=== PATIENT | male | born 1995 | race Caucasian/White ===

== ENCOUNTER 2025-06-07 14:09 | Emergency (ER) | payer OTHER, SELFPAY ==
--- NOTE | ~2025-06-07 | XR_ITS ---
EXAMINATION: XR CHEST CLINICAL INFORMATION: cp/sob COMPARISON: None available. TECHNIQUE: 2 views of the chest were obtained. FINDINGS: The lungs are well-expanded. There is no focal consolidation, edema or effusion. No pneumothorax. The cardiomediastinal silhouette is within normal limits. No acute osseous abnormality. XR/XR chest 2V IMPRESSION: No acute pulmonary disease. Electronically signed by: Wei Summers MD 06/07/2025 02:58 PM EST
--- NOTE | 2025-06-07 14:11 | ECG_ITS ---
Test Reason : HIGH HEAT RATE Blood Pressure : */* mmHG Vent. Rate : 121 BPM Atrial Rate : 121 BPM P-R Int : 126 ms QRS Dur : 80 ms QT Int : 292 ms P-R-T Axes : 72 50 54 degrees QTcB Int : 414 ms Sinus tachycardia Possible Left atrial enlargement Borderline ECG No previous ECGs available Referred By: Junie Calvo Electronically Signed By: LOPEZ ALLEN MD
[2025-06-07 14:26] VITALS: BP 171/86; PULSE 123; RESP 20; TEMP 37; O2SAT 97; BMI 21.4
--- NOTE | 2025-06-07 14:27 | ED.ARRPALP ---
HPI - Arrhythmia/Palpitations General Chief Complaint: Arrhythmia/Palpitations Stated Complaint: High Heart Rate, High Blood Pressure Time Seen by Provider: 06/07/25 18:42 History of Present Illness ED Provider: Mojgan HERNANDEZ narrative: The patient is a 30-year-old male who says that he has a very ill-defined past medical history of possible vestibular migraines but who was currently on no medications and does not have any other well-defined medical issues. He says that he was doing laundry at home today. He had to go up and down stairs several times. He says that he felt that his heart was racing more than he thought was normal and he also felt that the exertion of going up and down stairs seemed more significant than usual as well. He had a home blood pressure machine that indicated that he was hypertensive with a blood pressure of 150/120 and a rapid heart rate. He was concerned and came to the emergency room. He does not have any complaint of pain. No headache, no visual symptoms, no neck pain, no chest pain, no abdominal pain. He was not sweaty. The patient says that he drinks for 16 ounce beers every night. He says that he drank 4 beers yesterday. He says his drinking has never impaired his ability to work. He works at a highly skilled factory job and has never been impaired at work and does not feel that his alcohol use interferes with his work. He says that he used to be a heavier drinker but that he cut back to only four 16 ounce beers per day. No fever, sweats, chills. He denies any drug use other than alcohol use. He says that he has not had a primary care doctor 8 years. He says that when he was younger he had frequent problems with dizziness that led to multiple referrals and multiple testing both in his area and in the [facility]. He says that he was never given a very specific diagnosis accept for possibly having vestibular migraines. He says several medications were tried none of which worked very well. He says that he continues to have chronic low-grade symptoms of the same nature but has not seen anyone about them in years. He says he does not smoke cigarettes. He lives alone. Related Data Allergies Allergy/AdvReac Type Severity Reaction Status Date / Time No Known Allergies Allergy Verified 06/07/25 14:29 Review of Systems Review of Systems: Yes all other systems are reviewed and are negative [facility] Social History Social History Alcohol intake: current Alcohol intake frequency: 3 or more drinks per day Alcohol type: beer Physical Exam Vital Signs: Vital Signs: Last Vital Signs Temp 98.6 F 06/07/25 21:51 Pulse 90 06/07/25 21:51 Resp 16 06/07/25 21:51 BP 130/96 H 06/07/25 21:51 Pulse Ox 97 06/07/25 21:51 O2 Del Method Room Air 06/07/25 21:51 BMI result Body Mass Index 21.4 Const: Other: The patient is a 30-year-old male who is awake and alert. He does not appear in obvious distress. He has a somewhat anxious demeanor. Orientation/consciousness: patient oriented x3 HEENT: Other: Face is symmetrical, tongue is midline, posterior pharynx is normal. Eyes: Other: I thought there might be some very subtle anisocoria with the right pupil being slightly larger than the left. However both pupils were briskly reactive to light. There was no ptosis. Extraocular movements are intact. The eyes are otherwise normal. Neck: Neck: Yes normal visual inspection, Yes full ROM and Yes no lymphadenopathy Resp: Effort & Inspection: normal respiratory effort Auscultation: clear to auscultation bilaterally Cardio: Rate: tachycardic Rhythm: regular rhythm Heart sounds: S1 normal heart sound present, S2 normal heart sound present and Murmur heart sound present (No murmur heard) GI: Other: Abdomen is soft and nontender, no masses Skin: Other: The skin is dry and unremarkable Neuro: General: patient oriented x3, gait normal, tone normal, moves all extremities, no focal motor deficits and CN's II-XI intact bilaterally Extrem: Other: There is no calf swelling or tenderness. No asymmetry. No peripheral edema. Course Course Course Narrative: This is a Rapid Medical Exam performed in triage by Junie Calvo PA-C. Full HPI, ROS and PE to be performed by primary ED provider. 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 States BP was 150/120 & HR in 120s. Admits to chest discomfort & SOB PE: tachycardic, ambulating w/steady gait, nontoxic appearing Plan: EKG, labs, CXR, SARs Medications Administered Discontinued Medications Generic Name Dose Route Start Last Admin Trade Name Iveth PRN Reason Stop Dose Admin Sodium Chloride 1,000 mls @ 999 mls/hr 06/07/25 19:45 06/07/25 20:54 Ns IV 06/07/25 20:45 Infused .Q1H1M DONNIE Infusion Medical Decision Making Medical Decision Making [facility] Narrative: The patient is a 30-year-old male on no medication who comes to the emergency department after checking his vital signs at home. He was doing laundry at home. He says he had to go up and down stairs several times and he felt that his heart was racing and that he felt slightly more winded than usual. He then checked his vital signs, he was tachycardic and hypertensive. He was concerned and came to the emergency room. He did not have any significant headache, neck pain, chest pain, back pain, or abdominal pain associated with this. No fever, sweats, chills. No nausea or vomiting. And arrival here the patient has a blood pressure of 171/86 with a heart rate of 123. He had an EKG that showed sinus tachycardia at 121 beats per minute. No definite acute ischemic changes were present on the EKG. No old EKGs available for comparison. The patient had an undetectable troponin. A proBNP of 25. TSH was 0.60. Electrolytes are normal. Renal function is normal. Glucose was mildly elevated at 119. He had an PA and lateral chest x-ray that showed no acute findings. Because of his unexplained tachycardia a D-dimer was done that was < 150. Overall I found the patient is presentation puzzling. He is only 30 years old. His degree of hypertension and his tachycardia was surprising although he did not look obviously acutely ill. He had no pain associated with this. No diaphoresis. No significant tremor. The patient admits to drinking for 16 oz of beer every evening. However he says he had 4 beers yesterday so I would not expect him to be an alcohol withdrawal at this point. Overall his lab testing is quite reassuring from the point of view of any dangerous acute cardiopulmonary or vascular process. He was given a L of IV saline. His vital signs improved. His heart rate came down to 90. His blood pressure came down to 130/96. His vital signs made me wonder as to whether I should consider a pheochromocytoma but he had no diaphoresis and no headache. He also does not really seemed to be describing episodes of symptoms. My overall impression is that the patient improved with simple hydration and that I may discharge him. Unfortunately he does not have a PCP. I emphasized to the patient that he really should get a PCP. He was given multiple offices for contact information so that he can start trying to get a PCP on Tuesday. If he is significantly worse at any point he should return to the emergency department directly. Lab Data 06/07/25 15:44 06/07/25 15:44 Labs: Lab Results 06/07/25 06/07/25 06/07/25 Range/Units 15:44 21:09 21:11 WBC 12.3 H (4.8-10.8) X10*3/uL RBC 5.24 (4.60-5.80) X10*6/uL Hgb 17.0 (14.0-18.0) g/dl Hct 48.9 (42.0-52.0) % MCV 93.3 (80.0-98.0) fL MCH 32.4 (27.0-33.0) pg MCHC 34.8 (31.0-36.0) g/dl RDW 11.5 (11.0-16.0) % Plt Count 286 (160-400) X10*3/uL MPV 8.1 L (9.4-12.4) fL Immature Gran % (Auto) 0.3 (0.0-0.4) % Neut % (Auto) 87.5 H (45-73) % Lymph % (Auto) 6.7 L (20-40) % [place] % (Auto) 5.1 (2-11) % Eos % (Auto) 0.2 (0-4) % Baso % (Auto) 0.2 (0-2) % Lymph # (Auto) 0.8 L (1.2-4.9) X10*3/uL [place] # (Auto) 0.6 (0.1-1.2) X10*3/uL Eos # (Auto) 0.0 (0.0-0.4) X10*3/uL Baso # (Auto) 0.0 (0.0-0.2) X10*3/uL Abs Immat Gran (auto) 0.04 H (0.00-0.03) X10*3/uL Absolute Neuts (auto) 10.8 H (2.0-8.3) x10*3/uL Absolute Nucleated RBC 0.000 (0.0-0.012) X10*3/uL Nucleated RBC % (auto) 0.0 (0.0-0.2) /100WBC PT 11.5 (11.2-13.5) SEC INR 0.9 (0.9-1.1) D-Dimer High Sensitivty < 150 NG/ML Sodium 139 (135-145) mmol/L Potassium 3.9 (3.3-5.1) mmol/L Chloride 101 (96-108) mmol/L Carbon Dioxide 27 (22-29) mmol/L Anion Gap 15 (12-20) BUN 9 (9-16) mg/dL Creatinine 0.75 (0.5-1.4) mg/dL Estim Creat Clear Calc 135.2 Estimated GFR > 60 Random Glucose 119 H (60-115) mg/dL Calcium 10.0 (8.4-10.2) mg/dL Magnesium 2.2 (1.6-2.6) mg/dL Total Bilirubin 0.8 (0.0-1.0) mg/dL Direct Bilirubin 0.5 (0.0-0.5) mg/dL AST 37 (5-37) U/L ALT 36 (0-40) U/L Alkaline Phosphatase 51 (39-117) U/L Troponin I High Sens < 2.7 (<3.5-35.0) ng/L C-Reactive Protein < 0.10 (< or = 0.50) mg/dL NT-Pro-B Natriuret Pep 25.1 (<300) pg/mL Total Protein 8.3 H (6.5-8.0) g/dL Albumin 5.0 (3.5-5.0) g/dL TSH 0.60 (0.32-4.0) uIU/mL Urine Color Yellow Urine Appearance Clear Urine pH 6.5 (5.0-9.0) Ur Specific [place] 1.010 (1.005-1.025) Urine Protein Negative (Neg-Trace) mg/dL Urine Glucose (UA) Negative (Negative) mg/dL Urine Ketones Trace (Negative) mg/dL Urine Blood Negative (Negative) Urine Nitrite Negative (Negative) Ur Leukocyte Esterase Negative (Negative) Urine Opiates Screen Not Detected (Not Detect) Ur Buprenorphine Scrn Not Detected (Not Detect) ng/mL Ur Oxycodone Screen Not Detected (Not Detect) ng/mL Urine Methadone Screen Not Detected (Not Detect) ng/mL Urine Fentanyl Screen Not Detected (Not Detect) Ur Barbiturates Screen Not Detected (Not Detect) Ur Phencyclidine Scrn Not Detected (Not Detect) Ur Amphetamines Screen Not Detected (Not Detect) U Benzodiazepines Scrn Not Detected (Not Detect) Urine Cocaine Screen Not Detected (Not Detect) U Marijuana (THC) Screen Not Detected (Not Detect) Ethyl Alcohol < 10 mg/dL Influenza Type A (PCR) NEGATIVE (Negative) Influenza Type B (PCR) NEGATIVE (Negative) RSV RNA Qual (PCR) NEGATIVE (Negative) SARS-CoV-2 RNA (RT-PCR) NEGATIVE (Negative) Discharge Plan Discharge Clinical Impression: Palpitations, Dyspnea on exertion, Tachycardia, Elevated blood pressure reading Patient Disposition: Home, Self-Care Additional Instructions: Your testing in the emergency room today seems largely reassuring. Please try to rest and take it easy over the weekend. Take a lot of fluids, keep yourself well hydrated. Your vital signs were abnormal today with a high heart rate and some high blood pressures. These number seemed to improve quite well without any specific intervention. The meaning of these abnormal vital signs is not entirely clear today but your testing shows no obviously dangerous process. You will need to follow up with the primary care doctor. Please work on getting a primary care doctor on Tuesday. You has been given the contact information for multiple primary care doctor offices. Additionally you can contact your insurance company to see if they have any recommendations regarding local primary care doctor offices. If at any point you feel significantly worse please return to the emergency room for recheck. Referrals: [facility] [Provider Group, Family Practice] [facility] Primary Care, Ivania [Provider Group, Internal Medicine] [facility] Primary Care, Ganesh [Provider Group, Internal Medicine] [facility] Primary Care, [facility] [Provider Group, Primary Care] [facility] Primary Care, [facility] [Provider Group, Primary Care] Kelli Batista MD [Physician, Internal Medicine] Interventions: ED Discharge Assessment Last Done: 06/07/25 21:51 Discharge Date/Time: 06/07/25 21:52 Print Language: Italian
--- OUTSIDE RECORDS SUMMARY | 2025-06-07 14:30 | XMS_ITS | Encounter Summary ---
Author Organization [facility] Address [address] [place] [address] [place] [id number] Phone Care Team Providers Care Emu Farm Worker Name Role Phone Mushtaq Ward MD Primary Care Provider Encounter Details Date Type Department Care Team (Latest Contact Info) Description 02/12/2016 Transcribe Orders [facility] Vestibular Lab [address] [address] Fernando Frias MD [email or web address] Imbalance (Primary Dx) Social History Tobacco Use Types Packs/Day Years Used Date Smoking Tobacco: Never Assessed Sex and Gender Information Value Date Recorded Sex Assigned at Not on file Legal Sex Male 12:22 PM EDT Gender Identity Not on file Sexual Orientation Not on file documented as of this encounter Plan of Treatment Not on file documented as of this encounter Results * Vestibular Testing (03/26/2016 8:16 AM EDT) Anatomical Region Laterality Modality Other Other us Fernando Frias MD NEUROLOGY ORDERABLES Final Resul t documented in this encounter Visit Diagnoses Diagnosis Imbalance- Primary Abnormality of gait documented in this encounter Care Teams Emu Farm Worker Relationship Specialty Start Date End Date Mushtaq Ward MD PCP - General 01/19/16 documented as of this encounter Additional Source Comments The information contained in this document represents components of the legal health record. It is not the complete legal health record.[facility]
--- OUTSIDE RECORDS SUMMARY | 2025-06-07 14:30 | XMS_ITS | Encounter Summary ---
Author Organization [facility] Address [address] [place] [id number] Phone Care Team Providers Care Executive Assistant To President Name Role Phone Mushtaq Ward MD Primary Care Provider Encounter Details Date Type Department Care Team (Latest Contact Info) Description 02/12/2016 Transcribe Orders [facility] Vestibular Lab [address] [address] Fernando Frias MD [email or web address] Dizziness (Primary Dx) Social History Tobacco Use Types Packs/Day Years Used Date Smoking Tobacco: Never Assessed Sex and Gender Information Value Date Recorded Sex Assigned at Not on file Legal Sex Male 12:22 PM EDT Gender Identity Not on file Sexual Orientation Not on file documented as of this encounter Plan of Treatment Not on file documented as of this encounter Procedures Procedure Name Priority Date/Time Associated Diagnosis Comments AUDIOLOGY ORDERS Routine 03/19/2016 9:44 AM EDT Dizziness documented in this encounter Results * Audiology Orders (03/19/2016 9:44 AM EDT) Other us Fernando Frias MD AUDIOLOGY SERVICES ORDERABLES Fi nal Result documented in this encounter Visit Diagnoses Diagnosis Dizziness- Primary Dizziness and giddiness documented in this encounter Care Teams Executive Assistant To President Relationship Specialty Start Date End Date Mushtaq Ward MD PCP - General 01/19/16 documented as of this encounter Additional Source Comments The information contained in this document represents components of the legal health record. It is not the complete legal health record.[facility]
--- OUTSIDE RECORDS SUMMARY | 2025-06-07 14:30 | XMS_ITS | Clinical Summary ---
Author Organization [facility] Address [address] [place] [id number] Phone Care Team Providers Care Leather Scraper Name Role Phone Mushtaq Ward MD Primary Care Provider Allergies No known active allergies Medications No known medications Active Problems No known active problems Family History Medical History Relation Comments Hearing loss Neg Hx Social History Tobacco Use Types Packs/Day Years Used Date Smoking Tobacco: Never Alcohol Use Standard Drinks/Week Comments Yes 6 (1 standard drink = 0.6 oz pur e alcohol) Education Answer Date Recorded Are you interested in more education? Not on bibiana e 10/08/2022 Are you concerned about learning? Not on file 10/08/2022 No 10/08/2022 No 10/08/2022 Digital Access Answer Date Recorded No 11/08/2022 No 11/08/2022 No 11/08/2022 Reliable internet access at home? Not on file 11/08/2022 Device with a working camera? Not on file Sex and Gender Information Value Date Recorded Sex Assigned at Not on file Legal Sex Male 12:22 PM EDT Gender Identity Not on file Sexual Orientation Not on file Last Filed Vital Signs Vital Sign Reading Time Taken Comments Blood Pressure - - Pulse - - Temperature - - Respiratory Rate 12 03/19/2016 2:48 PM EDT Oxygen Saturation - - Inhaled Oxygen Concentration - - Weight 72.6 kg (160 lb) 03/19/2016 2:48 PM EDT Height 175.3 cm (5' 9 ) 03/19/2016 2:48 PM EDT Body Mass Index 23.63 03/19/2016 2:48 PM EDT Plan of Treatment Health Maintenance Due Date Last Done Comments Adult Td,Tdap Booster 1993 DEPRESSION SCREENING 2005 HEPATITIS C SCREENING 2011 HIV ONE-TIME SCREENING (18-6 5 YEARS) 2011 SMOKING STATUS SCREENING (On ce After 26 Yrs) 2019 INFLUENZA VACCINE (#1) 2025 COVID-19 VACCINE ( - 2024-2 6 season) 2025 HEPATITIS A VACCINES Aged Out No long er eligible based on patient's age to complete this topic HIB VACCINES Aged Out No longer eligi ble based on patient's age to complete this topic MENINGOCOCCAL VACCINES (ACWY) Aged Out No longer eligible based on patient's age to complete this topic MENINGOCOCCAL VACCINES (B) Aged Out N o longer eligible based on patient's age to complete this topic PNEUMOCOCCAL VACCINES (0-49 years) Aged Out No longer eligible based on patient's age to complete this topic Medical Devices Not on file Insurance [employer]pify [facility] Crispify [facility] Crispify [facility] Crispify [facility] Member Subscriber Plan / Payer (Ef fective 2009-Present) Name:StevenmaureenSlava Relation to Subscriber:Child Name:JOSELIN HEART Date of :1962 (Home) Address: [address] [place] [address] Payer ID:[id number] (NAIC) Group ID:[id number] Type:PPO Address: [address] [place] [id number] Care Teams Leather Scraper Relationship Specialty Start Date End Date Mushtaq Ward MD PCP - General 01/19/16 Additional Source Comments The information contained in this document represents components of the legal health record. It is not the complete legal health record.[facility]
--- OUTSIDE RECORDS SUMMARY | 2025-06-07 14:30 | XMS_ITS | Encounter Summary ---
Author Organization [facility] Address [address] [place] [phone] Phone Care Team Providers Care Offender Job Retention Specialist Name Role Phone Mushtaq Ward MD Primary Care Provider Encounter Details Date Type Department Care Team (Latest Contact Info) Description 02/12/2016 Transcribe Orders [facility] Vestibular Lab [address] [address] Fernando Frias MD [email or web address] Dizziness (Primary Dx) Social History Tobacco [...] Associated Diagnosis Comments AUDIOLOGY ORDERS Routine 03/19/2016 10:31 AM EDT Dizziness documented in this encounter Results * Audiology Orders (03/19/2016 10:31 AM EDT) Other us Fernando Frias MD AUDIOLOGY SERVICES ORDERABLES Fi nal Result documented in this encounter Visit Diagnoses Diagnosis Dizziness- Primary Dizziness and giddiness documented in this encounter Care Teams Offender Job Retention Specialist Relationship Specialty Start Date End Date Mushtaq Ward MD PCP - General 01/19/16 documented as of this encounter Additional Source Comments The information contained in this document represents components of the legal health record. It is not the complete legal health record.[facility]
--- OUTSIDE RECORDS SUMMARY | 2025-06-07 14:30 | XMS_ITS | Encounter Summary ---
Author Organization [facility] Address [address] [place] [address] [place] [id number] Phone Care Team Providers Care Wall Steamer Name Role Phone Mushtaq Ward MD Primary Care Provider Reason for Referral * MRI/CAT Scan - Closed Specialty Diagnoses / Procedures Referred By Trae starks Referred To Contact Radiology Diagnoses Dizziness Procedures CT Head Fernando Frias MD [email or web address] Referral ID Status Reason Start Date Expiration Date Visits Re quested Visits Authorized [id number] Closed 02/12/2016 03/19/2016 1 1 Encounter Details Date Type Department Care Team (Latest Contact Info) Description 02/12/2016 Transcribe Orders [facility] Vestibular Lab [address] [address] Fernando Frias MD [email or web address] Dizziness (Primary Dx); Dizziness Social History Tobacco Use Types Packs/Day Years Used Date Smoking Tobacco: Never Assessed Sex and Gender Information Value Date Recorded Sex Assigned at Not on file Legal Sex Male 12:22 PM EDT Gender Identity Not on file Sexual Orientation Not on file documented as of this encounter Plan of Treatment Not on file documented as of this encounter Results * CT HEAD (TEMPORAL BONES [place]) WITHOUT CONTRAST (03/19/2016 11:30 AM EDT) Anatomical Region Laterality Modality Head Computed Tomogra phy Impressions 03/21/2016 10:42 PM EDT * Impression * IMPRESSION: 1. NO EVIDENCE OF SEMICIRCULAR CANAL DEHISCENCE BILATERALLY. 2. MILD OPACIFICATION OF SOME LEFT MASTOID AIR CELLS. 3. FOCAL THICKENING AT THE LEFT TYMPANIC MEMBRANE. 4. RETRACTION OF THE RIGHT TYMPANIC MEMBRANE, WITH NONSPECIFIC MILD LINEAR DENSITY BETWEEN THE RETRACTED PORTION AND THE COCHLEAR PROMONTORY. 5. HIGH-RIDING RIGHT JUGULAR BULB. Narrative 03/21/2016 10:42 PM EDT * Report * Reason for Exam: 21-YEAR-OLD MALE WITH DIZZINESS. ASSESS FOR SEMICIRCULAR CANAL DEHISCENCE. CT TEMPORAL BONES TECHNIQUE: Axial images through the temporal bones were acquired without the use of intravenous contrast. COMPARISON: None. FINDINGS: LEFT: There is minimal debris in the external auditory canal probably representing cerumen. There is focal thickening of the tympanic membrane mid to lower portion. The mastoid is slightly under-pneumatized. There is mild opacification of a few mastoid air cells. The mastoid antrum, aditus ad antrum, and middle ear cavity are clear. The scutum is sharp. The tegmen tympani is intact. The ossicular chain is intact. There is no evidence of inner ear dysplasia. The semicircular canals are covered by bone. The vestibular aqueduct is normal in caliber. The facial nerve canal describes a normal course. The tympanic facial nerve is covered by bone. RIGHT: There is minimal debris in the external auditory canal which may represent cerumen. The tympanic membrane appears retracted, and there is a small linear density between the retracted tympanic membrane and the cochlear promontory, nonspecific. The mastoid is normally pneumatized. The mastoid air cells are clear. The scutum is sharp. The tegmen tympani is intact. The ossicular chain is intact. There is no evidence of inner ear dysplasia. The semicircular canals are covered by bone. The vestibular aqueduct is normal in caliber. The facial nerve canal describes a normal course. There is a mildly high-riding jugular bulb, with grossly intact bony covering at the level of its protrusion toward the middle ear cavity. Procedure Note Brittni Quinn MD - 03/21/2016 * Report * Reason for Exam: 21-YEAR-OLD MALE WITH DIZZINESS. ASSESS FOR SEMICIRCULAR CANAL DEHISCENCE. CT TEMPORAL BONES TECHNIQUE: Axial images through the temporal bones were acquired without the use of intravenous contrast. COMPARISON: None. FINDINGS: LEFT: There is minimal debris in the external auditory canal probably representing cerumen. There is focal thickening of the tympanic membrane mid to lower portion. The mastoid is slightly under-pneumatized. There is mild opacification of a few mastoid air cells. The mastoid antrum, aditus ad antrum, and middle ear cavity are clear. The scutum is sharp. The tegmen tympani is intact. The ossicular chain is intact. There is no evidence of inner ear dysplasia. The semicircular canals are covered by bone. The vestibular aqueduct is normal in caliber. The facial nerve canal describes a normal course. The tympanic facial nerve is covered by bone. RIGHT: There is minimal debris in the external auditory canal which may represent cerumen. The tympanic membrane appears retracted, and there is a small linear density between the retracted tympanic membrane and the cochlear promontory, nonspecific. The mastoid is normally pneumatized. The mastoid air cells are clear. The scutum is sharp. The tegmen tympani is intact. The ossicular chain is intact. There is no evidence of inner ear dysplasia. The semicircular canals are covered by bone. The vestibular aqueduct is normal in caliber. The facial nerve canal describes a normal course. There is a mildly high-riding jugular bulb, with grossly intact bony covering at the level of its protrusion toward the middle ear cavity. IMPRESSION: * Impression * IMPRESSION: 1. NO EVIDENCE OF SEMICIRCULAR CANAL DEHISCENCE BILATERALLY. 2. MILD OPACIFICATION OF SOME LEFT MASTOID AIR CELLS. 3. FOCAL THICKENING AT THE LEFT TYMPANIC MEMBRANE. 4. RETRACTION OF THE RIGHT TYMPANIC MEMBRANE, WITH NONSPECIFIC MILD LINEAR DENSITY BETWEEN THE RETRACTED PORTION AND THE COCHLEAR PROMONTORY. 5. HIGH-RIDING RIGHT JUGULAR BULB. Fernando Frias MD IMG CT HEAD/NECK Final Result documented in this encounter Visit Diagnoses Diagnosis Dizziness- Primary Dizziness and giddiness Dizziness Dizziness and giddiness documented in this encounter Care Teams Wall Steamer Relationship Specialty Start Date End Date Mushtaq Ward MD PCP - General 01/19/16 documented as of this encounter Additional Source Comments The information contained in this document represents components of the legal health record. It is not the complete legal health record.[facility]
--- OUTSIDE RECORDS SUMMARY | 2025-06-07 14:30 | XMS_ITS | Clinical Summary ---
Author Organization [facility] Prior to 11/10/[address] [place] [address] Care Team Providers Care Burial Vault Maker Name Role Phone Jr Sanchez MD Primary Care Provider [phone]- [phone] Allergies No known active allergies Medications Medication Sig Dispensed Refills Start Date End Date Status nortriptyline (PAMELOR) 10 MG/5ML solution Take by mouth every night at bedtime. 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 Social History Tobacco Use Types Packs/Day Years Used Date Smoking Tobacco: Never Smokeless Tobacco: Never Sex and Gender Information Value Date Recorded Sex Assigned at Not on file Gender Identity Not on file Sexual Orientation Not on file Plan of Treatment Health Maintenance Due Date Last Done Comments Hepatitis B Vaccines (1 of 3 - 3-dose series) 1993 Hepatitis C Screening 1993 COVID-19 Vaccine (#1) 1993 Depression Screening 2005 Preventative Health Evaluation 2011 DTap / Tdap / Td (1 - Tdap) 01/29/2012 Influenza Vaccine (#1) 2025 Pneumococcal Vaccine Aged Out No long er eligible based on patient's age to complete this topic RSV Ped < 20 months Aged Out No longe r eligible based on patient's age to complete this topic Care Teams Burial Vault Maker Relationship Specialty Start Date End Date Jr Sanchez MD [address] [facility] [place] [id number] PCP - General Family Medicine 02/24/18
[2025-06-07 15:49] LABS: MANUAL DIFF FLAG NO
[2025-06-07 15:50] LABS: Hematocrit 48.9 % (42.0-52.0); Hemoglobin 17.0 g/dl (14.0-18.0); Imm Gran Abs Auto 0.04 X10*3/uL (0.00-0.03); Imm Gran Pct Auto 0.3 % (0.0-0.4); Lymphocytes Absolute Auto 0.8 X10*3/uL (1.2-4.9); Mean Corpuscular HGB Conc 34.8 g/dl (31.0-36.0); Mean Corpuscular Hemoglobin 32.4 pg (27.0-33.0); Mean Corpuscular Volume 93.3 fL (80.0-98.0); NRBC Abs Auto 0.000 X10*3/uL (0.0-0.012); NRBC Pct Auto 0.0 /100WBC (0.0-0.2); Platelet Count 286 X10*3/uL (160-400); Red Blood Count 5.24 X10*6/uL (4.60-5.80); White Blood Count 12.3 X10*3/uL (4.8-10.8)
[2025-06-07 16:00] LABS: INTERNATIONAL NORM RATIO 0.9 (0.9-1.1); Prothrombin Time 11.5 SEC (11.2-13.5)
[2025-06-07 16:34] LABS: Resp Syncy Virus RNA Qual PCR NEGATIVE (Negative); SARS COV2 PCR INHOUSE NEGATIVE (Negative)
[2025-06-07 16:40] LABS: Alanine Aminotransferase 36 U/L (0-40); Albumin Level 5.0 g/dL (3.5-5.0); Alkaline Phosphatase 51 U/L (39-117); Anion Gap 15 (12-20); Aspartate Amino Transferase 37 U/L (5-37); Blood Urea Nitrogen 9 mg/dL (9-16); Calcium 10.0 mg/dL (8.4-10.2); Carbon Dioxide 27 mmol/L (22-29); Chloride 101 mmol/L (96-108); Creatinine Clr Calc Pharmacy 135.2; Estimated Glomerular Filt Rate > 60; Magnesium 2.2 mg/dL (1.6-2.6); Potassium 3.9 mmol/L (3.3-5.1); Sodium 139 mmol/L (135-145); Total Protein 8.3 g/dL (6.5-8.0)
[2025-06-07 16:43] LABS: Troponin-I High Sensitivity < 2.7 ng/L (<3.5-35.0)
[2025-06-07 18:00] VITALS: BP 147/96; PULSE 114; TEMP 36.9; O2SAT 99
[2025-06-07 19:26] LABS: D Dimer High Sensitivity < 150 NG/ML
[2025-06-07 19:29] LABS: NT Pro B Type Natriuretic Pept 25.1 pg/mL (<300)
[2025-06-07 20:00] VITALS: BP 146/94; PULSE 95; RESP 13; TEMP 37; O2SAT 97
[2025-06-07 21:14] LABS: Appearance Urine Clear; Glucose Urine UA Negative (Negative); PH 6.5 (5.0-9.0); Specific Gravity - Urine 1.010 (1.005-1.025)
[2025-06-07 21:51] VITALS: BP 130/96; PULSE 90; RESP 16; TEMP 37; O2SAT 97
[2025-06-07 21:58] LABS: Cannabinoid Screen Urine Not Detected (Not Detect)
== END 2025-06-07 21:52 | disposition home or self-care (01) ==
PROVIDERS: Physician Assistant; Emergency Provider Emergency Medicine
DX: R00.2 Palpitations (principal); R06.09 Other forms of dyspnea; R07.9 Chest pain, unspecified; R00.0 Tachycardia, unspecified; R03.0 Elevated blood-pressure reading, without diagnosis of hypertension; Z03.818 Encounter for observation for suspected exposure to other biological agents ruled out
CPT/HCPCS: 36415; 71046; 80048; 80076; 80307; 81003; 83735; 83880; 84443; 84484; 85025; 85379; 85610; 86140; 87637; 93005; 96360; 99284; 99285

== ENCOUNTER → 2025-06-07 14:11 | Outpatient (BNV) | payer OTHER, SELFPAY | PROVIDERS: Emergency Provider Emergency Medicine; Visit Provider Internal Medicine Cardiovascular Disease | DX: R00.0 Tachycardia, unspecified (principal) | CPT/HCPCS: 93010 ==

== ENCOUNTER → 2025-06-07 14:31 | Outpatient (BNV) | payer OTHER, SELFPAY | PROVIDERS: Visit Provider Radiology Diagnostic Ultrasound | DX: R07.9 Chest pain, unspecified (principal); R06.02 Shortness of breath | CPT/HCPCS: 71046 ==